=== PATIENT | female | born 1985 | race Caucasian/White ===

== ENCOUNTER 2020-11-11 10:01 | Inpatient (IN) ==
--- NOTE | 2020-11-09 15:18 | Anesthesiology Consultation ---
Date of Service November 09, 2020 Assessment & Plan (1) Encounter for pre-operative examination: Chart Review Chart Review: Acceptable Risk for Surgery and Patient NOT seen in Pre Admission Testing Consults Requested none History Surgery Operation Date: 11/11/20 12:15 Proposed Procedures p L5-S1 Decompression Fusion, Spinal Cord Monitoring - Barrett Arteaga DO Height/Weight Height: 5 ft 7 in Weight: 89.811 kg Allergies Allergy/AdvReac Type Severity Reaction Status Date / Time levofloxacin [From Levaquin] Allergy facial Verified 11/08/20 13:20 edema Sulfa (Sulfonamide Allergy Hives Verified 11/08/20 13:20 Antibiotics) morphine AdvReac severe Verified 11/08/20 13:20 muscle cramping Medications Home Medications Medication Instructions Recorded Confirmed Last Taken acetaminophen 500 mg capsule 500 mg PO Q6H PRN 11/08/20 11/08/20 Unknown ascorbic acid (vitamin C) 500 mg 500 mg PO QAM 11/08/20 11/08/20 Unknown tablet (Vitamin C) bupropion HCl 150 mg 24 hr tablet, 150 mg PO QAM 11/08/20 11/08/20 Unknown extended release (Wellbutrin XL) clonazepam 1 mg tablet (Klonopin) 1 mg PO BID PRN 11/08/20 11/08/20 Unknown cyanocobalamin (vitamin B-12) 1,000 mcg IM MO 11/08/20 11/08/20 Unknown 1,000 mcg/mL injection solution diphenhydramine HCl 25 mg capsule 25 mg PO HS PRN 11/08/20 11/08/20 Unknown (Benadryl) ferrous sulfate 325 mg (65 mg 325 mg PO QAM 11/08/20 11/08/20 Unknown iron) tablet (iron) gabapentin 100 mg tablet 100 mg PO UD PRN 11/08/20 11/08/20 Unknown gabapentin 300 mg tablet 300 mg PO TID 11/08/20 11/08/20 Unknown ibuprofen 600 mg tablet 600 mg PO Q6H PRN 11/08/20 11/08/20 Unknown pantoprazole 40 mg tablet,delayed 40 mg PO QAM 11/08/20 11/08/20 Unknown release (Protonix) tizanidine 2 mg tablet 2 mg PO BID PRN 11/08/20 11/08/20 Unknown tramadol 50 mg tablet 50 mg PO Q6H PRN 11/08/20 11/08/20 Unknown Past Medical History Medical History Anxiety and depression DDD (degenerative disc disease) Herniated intervertebral disc History of cardiac murmur as a child History of Chiari malformation History of gastric ulcer History of GI bleed History of iron deficiency anemia Osteoarthritis Postoperative nausea Retrolisthesis of vertebrae Past Surgical History Surgical History History of x 2 History of cholecystectomy History of colonoscopy History of esophagogastroduodenoscopy (EGD) History of loop electrical excision procedure (LEEP) History of surgery chiari malformation decompression History of tonsillectomy and adenoidectomy History of wisdom tooth extraction Social History Smoking Status: Current every day smoker tobacco type: cigarettes Smoking cigarettes per day: 10 Do You Dip or Chew Tobacco: No Hx Alcohol Use: Yes alcohol intake frequency: a few times a month Hx Substance Use: No substance use type: does not use Testing Laboratory Results Laboratory Tests 11/03/20 11/03/20 11/03/20 12:38 12:38 12:38 WBC 10.10 Hgb 13.5 Hct 39.4 Plt Count 230 PT 9.3 INR 0.9 APTT 29.4 Sodium 141 Potassium 3.7 Chloride 110 H Carbon Dioxide 23 BUN 7 Creatinine 0.83 Glucose 91 Electrocardiogram Date: 11/03/20 DICTATED BY: Oscar Peña MD Test Reason : Blood Pressure : / mmHG Vent. Rate : 082 BPM Atrial Rate : 082 BPM P-R Int : 110 ms QRS Dur : 094 ms QT Int : 374 ms P-R-T Axes : 075 088 050 degrees QTc Int : 436 ms Sinus rhythm with sinus arrhythmia Otherwise normal ECG No previous ECGs available Confirmed by Oscar Peña ([id number]) on 11/04/2020 3:13:06 PM Chest X-Ray Date: 11/03/20 XR chest 2V PA/lateral HISTORY: 35 years-old Female Z01.818 COMPARISON: None TECHNIQUE: PA and lateral views of the chest FINDINGS: Cardiomediastinal and hilar silhouettes are within normal limits. No pneumotho rax, pleural effusion, airspace consolidation or overt pulmonary edema. Bones appear grossly intact. Cholecystectomy. IMPRESSION: No acute process.
--- NOTE | 2020-11-09 16:03 | History & Physical Report ---
Date of Service November 09, 2020 Assessment & Plan (1) Lumbar disc herniation with radiculopathy: Plan: Assessment lumbar disc condition with radiculopathy. Plan at this time we are planning for a L5-S1 decompression fusion. She does exhibit progressive neuro deficit involving left lower extremity. The pain is unremitting. History of Present Illness Chief Complaint: Back and left leg pain and weakness Primary Care Provider: Lindsey Lloyd This is a 35-year-old female who presents with after undergoing a fall at work with back pain and left sciatica. She undergone extensive course of nonoperative care but continues to note decline. She has marked inability to ambulate secondary to pain. She notes motor deficits involving the left lower extremity. Allergies Allergy/AdvReac Type Severity Reaction Status Date / Time levofloxacin [From Levaquin] Allergy facial Verified 11/08/20 13:20 edema Sulfa (Sulfonamide Allergy Hives Verified 11/08/20 13:20 Antibiotics) morphine AdvReac severe Verified 11/08/20 13:20 muscle cramping Home Medications Medication Instructions Recorded Confirmed Type acetaminophen 500 mg capsule 500 mg PO Q6H PRN 11/08/20 11/08/20 History ascorbic acid (vitamin C) 500 mg 500 mg PO QAM 11/08/20 11/08/20 History tablet (Vitamin C) bupropion HCl 150 mg 24 hr tablet, 150 mg PO QAM 11/08/20 11/08/20 History extended release (Wellbutrin XL) clonazepam 1 mg tablet (Klonopin) 1 mg PO BID PRN 11/08/20 11/08/20 History cyanocobalamin (vitamin B-12) 1,000 mcg IM MO 11/08/20 11/08/20 History 1,000 mcg/mL injection solution diphenhydramine HCl 25 mg capsule 25 mg PO HS PRN 11/08/20 11/08/20 History (Benadryl) ferrous sulfate 325 mg (65 mg 325 mg PO QAM 11/08/20 11/08/20 History iron) tablet (iron) gabapentin 100 mg tablet 100 mg PO UD PRN 11/08/20 11/08/20 History gabapentin 300 mg tablet 300 mg PO TID 11/08/20 11/08/20 History ibuprofen 600 mg tablet 600 mg PO Q6H PRN 11/08/20 11/08/20 History pantoprazole 40 mg tablet,delayed 40 mg PO QAM 11/08/20 11/08/20 History release (Protonix) tizanidine 2 mg tablet 2 mg PO BID PRN 11/08/20 11/08/20 History tramadol 50 mg tablet 50 mg PO Q6H PRN 11/08/20 11/08/20 History Past Med/Surg History Medical History Anxiety and depression DDD (degenerative disc disease) Herniated intervertebral disc History of cardiac murmur as a child History of Chiari malformation History of gastric ulcer History of GI bleed History of iron deficiency anemia Osteoarthritis Postoperative nausea Retrolisthesis of vertebrae Surgical History History of x 2 History of cholecystectomy History of colonoscopy History of esophagogastroduodenoscopy (EGD) History of loop electrical excision procedure (LEEP) History of surgery chiari malformation decompression History of tonsillectomy and adenoidectomy History of wisdom tooth extraction Social History Smoking Status: Current every day smoker Cigarettes Per Day: 10; Second Hand Exposure: Yes ( smokes); Hx Alcohol Use: Yes Hx Substance Use: No Preferred Language: Tongan Communication Ability: Effective Project Production Engineer Required: No Beliefs That Will Affect Care: None Current Living Situation: Spouse and Family Feels Safe at Home: Yes Assistive Devices: Brace/Splint/Immobilizer, Cane, Contacts and Glasses Physical Exam Physical Exam: Patient is alert and oriented Heart regular rhythm Lungs clear to auscultation Patient does exhibit severe tension signs with straight leg raising on the left compared to the right. She has 3+/5 left plantar flexion dorsiflexion extensor hallucis longus. She has breakaway weakness to the left quadricep. She exhibits 5 or 5 strength to detailed testing the right lower extremity. She has decreased sensation to cold and light touch to left lower extremity compared to the right.
[~2020-11-11 10:01] MED LIST: ACETAMINOPHEN 500 MG TAB PO SCH; CeleBREX 200 MG CAP PO SCH; GABAPENTIN 900 MG DOSE PO SCH; LR 15ML/HR IV SCH; ceFAZolin 2000MG 2,000 MG/15 ML SYR IV SCH
[2020-11-11 11:11] LABS: Pregnancy Test, Serum Negative (Negative)
[2020-11-11] MEDS ORDERED: GLYCOPYRROLATE 0.2 MG/ML VIAL ONE (11:20)
[2020-11-11] MEDS ORDERED: HYDROmorphone INJ 1 MG/ML SYRINGE IV PRN (11:20)
[2020-11-11] MEDS ORDERED: NEOSTIGMINE METHYLSULFATE 1 MG/ML 10ML VIAL ONE (11:20)
[2020-11-11] MEDS ORDERED: ePHEDrine sulfate 50 MG/ML AMP IV PRN (11:20)
[2020-11-11] MEDS ORDERED: DEXAMETHASONE SOD INJ 4 MG/ML VIAL ONE (11:20)
[2020-11-11] MEDS ORDERED: PROPOFOL IV EMULSION 10 MG/ML 20 ML VIAL IV ONE (11:20)
[2020-11-11] MEDS ORDERED: ONDANSETRON INJ 2 MG/ML 2 ML VIAL IV PRN (11:20)
[2020-11-11] MEDS ORDERED: MIDAZOLAM HCL 1 MG/ML 2ML VIAL ONE (11:20)
[2020-11-11] MEDS ORDERED: ATROPINE SULFATE 0.1 MG/ML 10ML SYR IV PRN (11:20)
[2020-11-11] MEDS ORDERED: PROMETHAZINE HCL 6.25 MG in SODIUM CHLORIDE 0.9% 50 ML IV PRN (11:20)
[2020-11-11] MEDS ORDERED: LIDOCAINE 2% 2 ML VIAL/AMP(20MG/ML) INFIL ONE (11:20)
[2020-11-11] MEDS ORDERED: ONDANSETRON INJ 2 MG/ML 2 ML VIAL ONE (11:20)
[2020-11-11] MEDS ORDERED: fentaNYL citrate 100 MCG/2 ML VIAL ONE (11:20)
[2020-11-11] MEDS ORDERED: SCOPOLAMINE 1 MG TDSY TD ONE (11:21)
--- NOTE | 2020-11-11 13:16 | History & Physical Bridge Note ---
Date of Service November 11, 2020 History & Physical Bridge Note I have examined the patient, reviewed the History & Physical and in the interval since the performance of the History & Physical I have noted the following changes of clinical significance: no changes noted
[2020-11-11] MEDS ORDERED: BUPIVACAINE 0.5 % 5 MG/1 ML MPF 30ML VIAL ONE (13:42)
[2020-11-11] MEDS ORDERED: EPINEPHrine INJ 1 MG/ML AMP ONE (13:42)
[2020-11-11] MEDS ORDERED: FLOSEAL HEMOSTATIC MATRIX 10ML TOP ONE (14:00)
[2020-11-11] MEDS ORDERED: HYDROmorphone INJ 2 MG/ML SYR/VIAL ONE (14:10)
[2020-11-11] MEDS ORDERED: ALBUTEROL HFA INHALER 8.5 GM ONE (15:18)
--- NOTE | 2020-11-11 15:22 | Operative Report ---
Post Operative Report Pre & Post Diagnosis Operation Date: 11/11/20 12:15 Pre-Op Diagnosis: Lumbar disc herniation with radiculopathy Post-Op Diagnosis: Lumbar disc herniation with radiculopathy I identified the patient and participated in the time-out.: Yes Procedure Operation Date: 11/11/20 12:15 Actual Procedures #1 lumbar decompression with bilateral medial facetectomies and foraminotomies L5-S1. #2 posterior spinal fusion L5-S1 per #3 placed posterior instrumentation L5-S1 per #4 interbody fusion L5-S1. #5 placement of globus titanium interbody cage 13 mm in height at L5-S1. #6 placement locally harvested morselized autograft in the posterior gutters. #7 placement of I factor combined with v toss in the interbody space and posterior gutters. Surgeon Barrett Arteaga, DO Aerodynamicist Leandro Urena Estimated Blood Loss 50 Findings Consistent with Post-Op Diagnosis Specimens None Indications This is a 35-year-old female who presents above-mentioned diagnosis of failing since course of nonoperative care is here for surgical invention. Description of Procedure Patient was met with identified informed consent obtained. Patient was then taken to the operative suite underwent ablation placed in a prone position Everett Bradley frame. A bony promises well-padded eyes inspected to ensure no external pressure placed upon the. This point lumbar spine was prepped and draped in a sterile fashion. Sharp dissection with the assistance of Bovie cautery was performed down to and exposing the lamina and transverse processes of L5 and the sacral ala bilaterally. From caudal cephalad fashion complete laminectomy of L5 was performed including bilateral medial facetectomies and foraminotomies. Identified significant disc protrusion against the nerve roots on the left. Pedicle screws were then placed in L5 and S1 levels bilaterally with assistance of fluoroscopy and the proper sized elba placed. By way of a transforaminal approach on the right a complete discectomy was performed endplates curetted to subcortical mean bone and a 13 mm titanium cage filled with I factor tapped in position. The rods were then compressed locked in final position bilaterally. The transverse processes of L5 and sacral ala burred to subcortically bone. I factor combined with V toss and locally harvested morselized autograft was then placed in the posterior gutters. 15 round SREEDHAR drain inserted. The incision was then closed with 1 Vicryl to fascia 2-0 Vicryl subcutaneously and 4 Monocryl for final skin closure. Steri-Strip sterile dressing was placed. Patient will continue PACU stable condition. Please note spinal cord monitoring was last that the procedure no changes noted. Lastly Leandro Urena was present at the entire surgeon while the patient positioning complex portions of the surgery and final skin closure. I attest to the content of the Intraoperative Record and any orders documented therein. Any exceptions are noted below.
--- NOTE | 2020-11-11 15:42 | Fluoroscopy Report ---
FL lumbar spine 2-3V CLINICAL HISTORY: L5-S1 DECOMPRESSION AND FUSION COMPARISON STUDY: None. FLUOROSCOPY TIME: 25 seconds. FLUOROSCOPIC IMAGES: 2 FINDINGS: Fluoroscopy was provided during L5-S1 discectomy with interbody spacer placement. Posterior decompression is noted. There are bilateral pedicle screws at the L5 and S1 levels with interconnect ing rods. Hardware is intact. IMPRESSION: Fluoroscopy provided during L5-S1 discectomy, posterior decompression and bilateral pedi richard screw fusion. ACT 112: Negative or not required by law. Electronically signed by: Brayden Peters M.D. 11/11/2020 3:41 PM
[2020-11-11] MEDS: fentaNYL citrate 100 MCG/2 ML VIAL IV PRN ×3 (15:58→16:08)
[2020-11-11] MEDS ORDERED: ACETAMINOPHEN 1,000 MG/100 ML VIAL IV STA (16:24)
[2020-11-11] MEDS ORDERED: ACETAMINOPHEN 1000 MG/100 ML IV IV ONE (16:25)
--- NOTE | 2020-11-11 16:36 | Anesthesiology Progress Note ---
Date of Service November 11, 2020 Anesthesia Post Procedure Vital Signs Vital Signs: Temp Pulse Pulse Resp BP BP Pulse Ox 11/11/20 16:30 36.5 C 86 15 127/76 93 11/11/20 16:20 87 24 132/70 93 11/11/20 16:10 95 H 19 121/69 93 11/11/20 16:00 99 H 24 132/78 98 11/11/20 15:53 36.3 C L 124 H 17 140/94 97 11/11/20 10:24 36.8 C 88 18 122/80 98 Pain Intensity Left Leg: Pain Intensity: 6 Back: Pain Intensity: 6 Transfer of Care Handoff Completed per policy Notes Mental Status: alert / awake / arousable Patient Amnestic to Procedure: Yes Nausea / Vomiting: adequately controlled Pain: adequately controlled Airway Patency, RR, SpO2: stable & adequate BP & HR: stable & adequate Hydration State: stable & adequate Anesthetic Complications: no major complications apparent
[2020-11-11] MEDS ORDERED: GABAPENTIN 100 MG PO PRN (17:30)
[2020-11-11] MEDS ORDERED: LORazepam 0.5 MG TAB PO PRN (17:30)
[2020-11-11] MEDS ORDERED: clonazePAM 1 MG TAB PO PRN (17:30)
[2020-11-11] MEDS ORDERED: DO NOT ADMINISTER PNEUMOCOCCAL VACCINE PRN (17:30)
[2020-11-11] MEDS ORDERED: NON-FORMULARY MEDICATION (Acetaminophen 500 mg Capsule) PO PRN (17:30)
[2020-11-11] MEDS ORDERED: LACTATED RINGER'S 1,000 ML IV SCH (17:30)
[2020-11-11] MEDS ORDERED: DO NOT ADMINISTER FLU VACCINE PRN (17:30)
[2020-11-11] MEDS ORDERED: PROMETHAZINE HCL 12.5 MG in SODIUM CHLORIDE 0.9% 50 ML IV PRN (17:30)
[2020-11-11] MEDS ORDERED: MAGNESIUM HYDROXIDE SUSP 30 ML UDC PO PRN (17:30)
[2020-11-11] MEDS ORDERED: SOD PHOSPHATE/SOD BIPHOSPHATE ENEMA 132 ML BTL PR PRN (17:30)
[2020-11-11] MEDS ORDERED: bisacodyL 10 MG SUPP PR PRN (17:30)
[2020-11-11] MEDS ORDERED: NALOXONE HCL 0.4 MG/1 ML VIAL/CARP IV PRN (17:30)
[2020-11-11] MEDS ORDERED: hydrOXYzine HCl 25 MG TAB PO PRN (17:30)
[2020-11-11] MEDS ORDERED: ACETAMINOPHEN 1,000 MG/100 ML VIAL IV PRN (17:30)
[2020-11-11] MEDS ORDERED: traMADol HCL 50 MG TABLET PO PRN (17:30)
[2020-11-11] MEDS ORDERED: FAMOTIDINE 20 MG TAB PO PRN (17:30)
[2020-11-11] MEDS ORDERED: tiZANidine HCL 4 MG TABLET PO PRN (17:30)
[2020-11-11] MEDS ORDERED: LORazepam 0.5 MG/1 ML VIAL IV PRN (17:30)
[2020-11-11] MEDS ORDERED: METOCLOPRAMIDE HCL INJ 5 MG/ML 2 ML VIAL IV PRN (17:30)
[2020-11-11] MEDS ORDERED: diphenhydrAMINE Capsule 25 MG CAP PO PRN ×2 (17:30)
[2020-11-11] MEDS ORDERED: ALUMINUM/MAGNESIUM SUSP 30 ML UDC PO PRN (17:30)
[2020-11-11] MEDS: HYDROmorphone INJ 1 MG/ML SYRINGE IV PRN ×2 (17:54→20:56)
[2020-11-11] MEDS: KETOROLAC 30 MG/ML VIAL IV SCH ×2 (17:58→22:51)
[2020-11-11] MEDS: ceFAZolin 2000MG 2,000 MG/15 ML SYR IV SCH (20:13)
[2020-11-11] MEDS: ONDANSETRON INJ 2 MG/ML 2 ML VIAL IV PRN (20:13)
[2020-11-11] MEDS: GABAPENTIN 300 MG CAP PO SCH (20:13)
[2020-11-11] MEDS: DOCUSATE SODIUM/SENNA 50/8.6MG TAB PO SCH (20:13)
[2020-11-12] MEDS: HYDROmorphone INJ 1 MG/ML SYRINGE IV PRN ×4 (02:04→22:23)
[2020-11-12] MEDS: ONDANSETRON INJ 2 MG/ML 2 ML VIAL IV PRN (03:42)
[2020-11-12] MEDS: ACETAMINOPHEN 500 MG TAB PO PRN ×2 (05:29→17:36)
[2020-11-12] MEDS: oxyCODONE HCL IR 5 MG TAB (IMMEDIATE RELEASE) PO PRN ×4 (05:29→20:47)
[2020-11-12] MEDS: POLYETHYLENE (MIRALAX) 17 GM PACK PO SCH ×4 (05:30→21:53)
[2020-11-12] MEDS: KETOROLAC 30 MG/ML VIAL IV SCH ×2 (05:30→12:43)
[2020-11-12] MEDS: ceFAZolin 2000MG 2,000 MG/15 ML SYR IV SCH (05:30)
[2020-11-12 05:59] LABS: Basophils # (auto) 0.02 K/uL (0-0.2); Basophils % (auto) 0.2 %; Eosinophils # (auto) 0.01 K/uL (0-0.5); Eosinophils % (auto) 0.1 %; Hematocrit (blood only) 34.4 % (37-47); Hemoglobin 11.4 g/dL (12.0-16.0); Immature Granulocytes # (auto) 0.02 K/uL (0.00-0.02); Immature Granulocytes % (auto) 0.2 %; Lymphocytes # (auto) 1.15 K/uL (1.2-3.4); Lymphocytes % (auto) 8.6 %; Mean Corpuscular Hemoglobin 29.8 pg (25-34); Mean Corpuscular Hgb Conc 33.1 g/dL (32-36); Mean Corpuscular Volume 89.8 fL (80-100); Mean Platelet Volume 10.6 fL (7.4-10.4); Monocytes # (auto) 0.81 K/uL (0.11-0.59); Monocytes % (auto) 6.1 %; Neutrophils # (auto) 11.31 K/uL (1.4-6.5); Neutrophils % (auto) 84.8 %; Platelet Count 227 K/uL (130-400); RDW Coefficient of Variation 12.4 % (11.5-14.5); RDW Standard Deviation 40.6 fL (36.4-46.3); Red Blood Count 3.83 M/uL (4.2-5.4); White Blood Count 13.32 K/uL (4.8-10.8)
[2020-11-12 06:37] LABS: BUN Creatinine Ratio 7.7 (10-20); Calcium 8.6 mg/dl (8.5-10.1); Creatinine Clr Calc Pharmacy 93.6 ml/min; Est GFR (African American) 87.2 ml/min; Est GFR (Non-African American) 75.3 ml/min
[2020-11-12] MEDS: HYDROmorphone INJ 0.5 MG/0.5 ML SYR IV PRN ×2 (08:42→17:36)
[2020-11-12] MEDS: PANTOprazole 40 MG TAB PO SCH (08:43)
[2020-11-12] MEDS: FERROUS SULFATE 325 MG TAB PO SCH (08:43)
[2020-11-12] MEDS: buPROPion XL 150 MG TABCR PO SCH (08:43)
[2020-11-12] MEDS: GABAPENTIN 300 MG CAP PO SCH ×3 (08:43→19:01)
[2020-11-12] MEDS: ASCORBIC ACID 500 MG TAB PO SCH (08:43)
--- NOTE | 2020-11-12 10:01 | Orthopedic Progress Note ---
Date of Service November 12, 2020 Assessment & Plan (1) Lumbar disc herniation with radiculopathy: Plan: This time initiate physical therapy monitor SREEDHAR operatively discharge home next few days. Admission and Anticipated Discharge Date Admission Date: November 11, 2020 Subjective Back pain controlled leg symptoms markedly improved Physical Exam Physical Exam: Patient has good strength testing is comfortable. Results & Data ([facility]) Vital Signs (Past 12 Hours) Vital Signs Temp Pulse Resp BP Pulse Ox 11/12/20 07:55 37.3 C 70 18 125/79 95 11/12/20 02:05 36.6 C 81 16 119/64 93 11/11/20 22:45 37.2 C 70 16 110/67 97
[2020-11-12] MEDS: ONDANSETRON 4 MG OD TAB PO PRN ×2 (12:45→22:23)
[2020-11-12] MEDS: DOCUSATE SODIUM/SENNA 50/8.6MG TAB PO SCH (19:01)
[2020-11-13] MEDS: ACETAMINOPHEN 500 MG TAB PO PRN (02:13)
[2020-11-13] MEDS: oxyCODONE HCL IR 5 MG TAB (IMMEDIATE RELEASE) PO PRN ×2 (02:13→08:34)
[2020-11-13] MEDS: POLYETHYLENE (MIRALAX) 17 GM PACK PO SCH (03:55)
[2020-11-13] MEDS: HYDROmorphone INJ 0.5 MG/0.5 ML SYR IV PRN (05:16)
--- NOTE | 2020-11-13 08:13 | Discharge Summary ---
Date of Service November 13, 2020 Admission HPI Per Admitting Provider This is a 35-year-old female who presents with after undergoing a fall at work with back pain and left sciatica. She undergone extensive course of nonoperative care but continues to note decline. She has marked inability to ambulate secondary to pain. She notes motor deficits involving the left lower extremity. Admission Exam (Per Admitting) Constitutional WD/WN, vitals as above Eyes normal visual fuentes by confrontation Neck normal visual inspection Respiratory normal respiratory effort Cardiovascular Extremities: normal capillary refill Gastrointestinal (Abdomen) Inspection/Auscultation: abdomen normal to inspection Musculoskeletal left foot drop numbness LLE Skin no rashes, warm and dry Neurologic normal touch/pain/proprioception and moves all extremities Psychiatric A+Ox3, euthymic affect Discharge Data Procedures Performed Operation Date: 11/11/20 12:15 Actual Procedures p L5-S1 Decompression Fusion, interbody cage implanted, with use of allograft, Spinal Cord Monitoring - Barrett Arteaga DO Hospital Course (1) Lumbar disc herniation with radiculopathy: Patient has had an uncomplicated postoperative course status post TLIF of L5-S1. She has been discharged home on postoperative day 2. Pain is controlled. She is passing flatus but no bowel movement. She is becoming quite anxious in the hospital and a bit homesick and is requesting to return home today. SREEDHAR drain output last shift was 30 cc. Physical therapy yesterday was 375 feet plus ambulating in the hallways. Discharge Instructions ACTIVITY RECOMMENDATIONS: SELF CARE INSTRUCTIONS AFTER THORACIC/LUMBAR FUSIONS 1. You may walk to your tolerance. It is good exercise for your legs and back. Expect some back and intermittent leg aches and pains. 2. You may perform "counter-top" level activities (make a sandwich, margoth with a project, etc.). 3. No bending or lifting of more than 10 pounds or back twisting of any nature (roll like a log when turning in bed). 4. You may ride in a car for 20-30 minutes at a time. No driving until after your first visit with your doctor. 5. Frequent changes of position and restricting sitting to 30 minutes at a time will help limit the amount of back spasms and stiffness you may experience. 6. You may discontinue the use of ambulatory aids (cane, crutches, etc.) once your strength and confidence allow. 7. You may machine milker the shower and let water strike your incision when you arrive home at least once daily. Do not take a tub bath, sit in a hot tub or go into a swimming pool until after your first recheck in the office. SPECIAL CARE INSTRUCTIONS: VERY IMPORTANT TO READ AND REVIEW A. Your surgical incision has been closed with a cosmetic suture under the skin that will dissolve in about 6 weeks. In 14 days, you can use a pair of clean scissors and cut the suture that is left outside of the skin at the ends of your incision. 1. The small skin tapes can be removed 7 days after surgery if they have not fallen off by that point. 2. You may keep the wound open to air as much as possible to promote healing after post-op day number 5 unless told otherwise by your doctor. 3. If you think the wound looks like it is becoming infected (redness or worsening drainage) and/or you are experiencing fever, chill or worsening back pain and muscle spasms, contact the office so that we may evaluate you as soon as possible. B. Complications are uncommon, but please contact us if you have any signs or symptoms of: 1. wound infection (fever higher than 102.5 degrees F, redness, separation of wound, drainage, or increasing pain from the incision) 2. blood clots in legs (pain, swelling, redness and warmth in legs) 3. urinary tract infection (fever higher than 102.5 degrees F, burning upon urination or increased frequency of urination) 4. nerve problems (inability to walk on your toes or heels, numbness, loss of bowel or bladder control) 5. any other symptoms that concern you C. Please call the office at if you have any concerns or questions about your operation or recovery. D. No smoking! Smoking drastically decreases the chance of a solid fusion. E. Do not take any anti-inflammatory medications (Indocin, Advil, Motrin, Aspirin, Naprosyn, etc.) as these may inhibit the chance of a solid fusion. Tylenol is okay to take for pain. MANAGING PAIN AFTER SPINAL SURGERY 1. Narcotic medication is intended for short-term use and will be provided for surgical pain. Surgical pain usually lasts for a period of 4-6 weeks. Narcotic medication includes Percocet, Vicodin, Darvocet, Tylenol #3 or Lortab. 2. Longer-term pain is more appropriately treated with non-narcotic medication such as Tylenol ES. 3. Muscle spasm is not appropriately treated with narcotics. Muscle relaxers such as Soma, Flexeril or Skelaxin can be used along with Tylenol ES. 4. Remember that we all live with some "aches and pains". This is not unusual or uncommon after an injury or as we get older. a. Back pain is expected and may include muscle spasms for 4 to 6 weeks after surgery. The pain should gradually improve. If the pain worsens for no apparent reason, please contact the office. b. Intermittent leg pain may also be experienced and should not be concerned about unless it worsens for no apparent reason. If so, please contact the office. 5. We will provide appropriate medication within the normal guidelines of their prescribed use. We will also be very cautious and aware of potential abuse and extended duration of patients' medication needs. a. Pain medications are for your comfort and to assist with sleep and rest so that the tissue can heal. They are not provided in order to return to normal activity and should not be used through the day. To do so or worsening pain at night can result from ongoing tissue damage and development of tolerance to the prescribed medicine. 6. Please allow 2-3 days to process refills. Prescriptions will not be mailed but must be picked up at the office. FOLLOW UP VISIT: Keep your scheduled follow-up appointment. Any questions, please call the office at .
[2020-11-13] MEDS: ASCORBIC ACID 500 MG TAB PO SCH (08:35)
[2020-11-13] MEDS: GABAPENTIN 300 MG CAP PO SCH (08:35)
[2020-11-13] MEDS: PANTOprazole 40 MG TAB PO SCH (08:35)
[2020-11-13] MEDS: buPROPion XL 150 MG TABCR PO SCH (08:35)
[2020-11-13] MEDS: FERROUS SULFATE 325 MG TAB PO SCH (08:35)
[2020-11-13] MEDS ORDERED: dexAMETHasone 8 MG in SYRINGE 0 ML IV SCH (09:00)
[2020-11-14] MEDS ORDERED: CYANOCOBALAMIN 1000 MCG/ML VIAL IM SCH (15:23)
--- NOTE | 2020-11-18 14:35 | Coding Query ---
CODING QUERY To promote full compliance with coding requirements relating to patient care, provider participation is requested in all cases of glove examiner uncertainty. Please assist us with the question(s) below: Coding Question(s): Lumbar disc herniation with radiculopathy is documented and there is documentation of , "This is a 35-year-old female who presents with after undergoing a fall at work with back pain and left sciatica. She undergone extensive course of nonoperative care but continues to note decline. She has marked inability to ambulate secondary to pain. She notes motor deficits involving the left lower extremity.". Please specify below, in your clinical opinion, regarding the Lumbar disc herniation with radiculopathy. (x ) Lumbar disc herniation with radiculopathy - due to Trauma from the Fall at work ( ) Lumbar disc herniation with radiculopathy - Not due to Trauma ( ) Other: Please Specify Physician's Response(s): Thank you Perla Tan Principal Diagnosis: "that condition established after study, to be chiefly responsible for occasioning the admission of the patient to the hospital for care." Co-Existing Principal Diagnosis: "when two or more diagnoses equally meet the criteria for principal diagnosis as determined by the circumstances of admission, diagnostic work up, and/or therapy provided, and the Alphabetic Index, Tabular List, or another coding guideline does not provide sequencing direction, any one of the diagnoses may be sequenced first." "When the physician has documented what appears to be a current diagnosis in the body of the record, but has not included the diagnosis in the final diagnostic statement, the physician should be asked whether the diagnosis should be added." ([facility] 2 QTR90. p3-4) CHERYL
== END 2020-11-13 09:31 | disposition home or self-care (01) | DRG 455 ==
LOC: ASU 10:01 → 3E 15:26

== ENCOUNTER 2021-04-19 10:57 | Inpatient (IN) ==
--- NOTE | 2021-04-19 11:28 | Emergency Department Note ---
History of Present Illness General Chief complaint: Leg Injury/Pain Stated complaint: LT LEG PAIN, HERNIATED DISC Time Seen by Provider: 04/19/21 11:21 History of Present Illness Maximum Pain Intensity: 10 This is a 35-year-old female that presents to the emergency department via private vehicle with complaints of "left leg pain, herniated disc". Patient notes a history of L5-S1 fusion in October 2020. She has been doing well since that time but notes that she had therapy this past and straight leg raise caused a shooting discomfort. She had a vasovagal episode at that time secondary to pain. She also had nausea, vomiting and spasm. She notes pain radiating down her left leg from her low back region. She was recently admitted to [facility] for the past few days for intractable back pain. She had an MRI and CT scan of the L-spine she notes. She followed up with her spine team today. She notes that she was sent here for admission with likely operative intervention noting her persistent and ongoing discomfort as well as abnormal imaging recently. Current discomfort 12/04. No fevers or chills. No cauda equina symptoms at the present time. Home Medications Medication Instructions Recorded Confirmed Type acetaminophen 500 mg capsule 500 mg PO Q6H PRN 11/08/20 11/11/20 History ascorbic acid (vitamin C) 500 mg 500 mg PO QAM 11/08/20 11/11/20 History tablet (Vitamin C) bupropion HCl 150 mg 24 hr tablet, 150 mg PO QAM 11/08/20 11/11/20 History extended release (Wellbutrin XL) clonazepam 1 mg tablet (Klonopin) 1 mg PO BID PRN 11/08/20 11/11/20 History cyanocobalamin (vitamin B-12) 1,000 mcg IM MO 11/08/20 11/11/20 History 1,000 mcg/mL injection solution diphenhydramine HCl 25 mg capsule 25 mg PO HS PRN 11/08/20 11/11/20 History (Benadryl) ferrous sulfate 325 mg (65 mg 325 mg PO QAM 11/08/20 11/11/20 History iron) tablet (iron) gabapentin 100 mg tablet 100 mg PO UD PRN 11/08/20 11/11/20 History gabapentin 300 mg tablet 300 mg PO TID 11/08/20 11/11/20 History ibuprofen 600 mg tablet 600 mg PO Q6H PRN 11/08/20 11/11/20 History pantoprazole 40 mg tablet,delayed 40 mg PO QAM 11/08/20 11/11/20 History release (Protonix) tizanidine 2 mg tablet 2 mg PO BID PRN 11/08/20 11/11/20 History tramadol 50 mg tablet 50 mg PO Q6H PRN 11/08/20 11/11/20 History oxycodone 5 mg tablet 5 mg PO Q6H PRN #30 tab 11/12/20 Rx tramadol 50 mg tablet 50 mg PO Q6H PRN #30 tab 11/12/20 Rx Allergies Allergy/AdvReac Type Severity Reaction Status Date / Time levofloxacin [From Levaquin] Allergy facial Verified 11/11/20 10:34 edema Sulfa (Sulfonamide Allergy Hives Verified 11/11/20 10:34 Antibiotics) morphine AdvReac severe Verified 11/11/20 10:34 muscle cramping Past Med/Surg History Medical History Anxiety and depression DDD (degenerative disc disease) Herniated intervertebral disc History of cardiac murmur as a child History of Chiari malformation History of gastric ulcer History of GI bleed History of iron deficiency anemia Osteoarthritis Postoperative nausea Retrolisthesis of vertebrae Surgical History History of x 2 History of cholecystectomy History of colonoscopy History of esophagogastroduodenoscopy (EGD) History of loop electrical excision procedure (LEEP) History of surgery chiari malformation decompression History of tonsillectomy and adenoidectomy History of wisdom tooth extraction Social History Smoking Status: Current every day smoker Cigarettes Per Day: 10; Second Hand Exposure: Yes ( smokes); Hx Alcohol Use: Yes Hx Substance Use: No Preferred Language: Citizen Of [place] Communication Ability: Effective Sales Service Coordinator Required: No Beliefs That Will Affect Care: None Current Living Situation: Spouse and Family Feels Safe at Home: Yes Assistive Devices: Walker Review of Systems A total of 10 systems reviewed and were otherwise negative Physical Exam Vital Signs Vital Signs - 24 hr 04/19/21 11:12 Temperature 36.6 C Temperature Source Temporal Artery Scan Pulse Rate 104 H Respiratory Rate 18 Respiratory Effort / Characteristics Non-Labored Respiratory Depth Normal Blood Pressure 142/94 H Blood Pressure Mean 110 Pulse Oximetry 98 Oxygen Delivery Method Room Air Sepsis Recent Fever Within 48 Hours No Sepsis New/Unexplained Change in Mental Status No Sepsis Action Taken by Nursing No Action Required VITAL SIGNS - Vital signs and nursing notes were reviewed. Stable and afebrile. GENERAL -35-year-old female appearing her stated age who is in no acute distress. Communicates well with provider and answers questions appropriately. SKIN - Without rashes. No meningeal or petechial rash. HEAD - NC/AT. EYES - Sclera anicteric. NECK - No nuchal rigidity. LUNGS - Chest wall symmetric without accessory muscle use, intercostals retractions, or central cyanosis. Normal vesicular breath sounds CTA B/L. No wheezes, rales, or rhonchi appreciated. CARDIAC - RRR with S1/S2. No murmur, rubs, or gallops appreciated. EXTREMITIES - No clubbing or peripheral cyanosis.+5/5 strength noted in UE/LE bilaterally. NEUROLOGIC - Cranial nerves II through XII grossly intact. PSYCH - A&Ox3 and cooperates fully with examiner. Pt is very pleasant and interacts well with examiner. Course Administered Medications Hydromorphone HCl (Hydromorphone Inj 0.5 Mg/0.5 Ml Syr) 0.5 mg IV Q60M PRN PRN Reason: Pain Stop: 05/03/21 11:52 Last Admin: 04/19/21 11:58 Dose: 0.5 mg Documented by: [id number] Discontinued Medications Ondansetron HCl (Ondansetron Inj 2 Mg/Ml 2 Ml Vial) 4 mg IV NOW STA Stop: 04/19/21 11:54 Last Admin: 04/19/21 11:58 Dose: 4 mg Documented by: [id number] Medical Decision Making Laboratory Data Result diagrams: 04/19/21 11:50 04/19/21 11:50 Lab Results 04/19/21 04/19/21 04/19/21 Range/Units 11:45 11:45 11:50 WBC 9.63 (4.8-10.8) K/uL RBC 4.60 (4.2-5.4) M/uL Hgb 13.8 (12.0-16.0) g/dL Hct 41.6 (37-47) % MCV 90.4 (80-100) fL MCH 30.0 (25-34) pg MCHC 33.2 (32-36) g/dL RDW Std Deviation 43.5 (36.4-46.3) fL RDW Coeff of [place] 13.2 (11.5-14.5) % Plt Count 290 (130-400) K/uL MPV 11.0 H (7.4-10.4) fL Immature Gran % (Auto) 0.2 % Neut % (Auto) 72.0 % Lymph % (Auto) 22.3 % [place] % (Auto) 4.6 % Eos % (Auto) 0.7 % Baso % (Auto) 0.2 % Neut # (Auto) 6.93 H (1.4-6.5) K/uL Lymph # (Auto) 2.15 (1.2-3.4) K/uL [place] # (Auto) 0.44 (0.11-0.59) K/uL Eos # (Auto) 0.07 (0-0.5) K/uL Baso # (Auto) 0.02 (0-0.2) K/uL Immature Gran # (Auto) 0.02 (0.00-0.02) K/uL Sodium (136-145) mmol/L Potassium (3.5-5.1) mmol/L Chloride (98-107) mmol/L Carbon Dioxide (21-32) mmol/L Anion Gap (3-11) BUN (6-23) mg/dl Creatinine (0.6-1.2) mg/dl Est Cr Clr Drug Dosing ml/min Est GFR ( Amer) ml/min Est GFR (Non-Af Amer) ml/min BUN/Creatinine Ratio (10-20) Glucose (70-99(Fasting)) mg/dl Calcium (8.5-10.1) mg/dl Total Bilirubin (0.2-1.0) mg/dl AST (13-39) U/L ALT (7-52) U/L Alkaline Phosphatase (34-104) U/L Total Protein (6.0-8.3) gm/dl Albumin (3.4-5.0) gm/dl Globulin (2.5-4.0) gm/dl Albumin/Globulin Ratio (0.9-2) Urine Color Yellow Urine Appearance Clear (Clear) Urine pH 6.5 (4.5-7.5) Ur Specific [place] 1.005 (1.000-1.030) Urine Protein Negative (Negative) Urine Glucose (UA) Negative (Negative) Urine Ketones Negative (Negative) Urine Blood Negative (Negative) Urine Nitrite Negative (Negative) Urine Bilirubin Negative (Negative) Urine Urobilinogen Negative (Negative) Ur Leukocyte Esterase Negative (Negative) SARS-CoV-2, RNA, NAAT NEGATIVE (NEGATIVE) 04/19/21 Range/Units 11:50 WBC (4.8-10.8) K/uL RBC (4.2-5.4) M/uL Hgb (12.0-16.0) g/dL Hct (37-47) % MCV (80-100) fL MCH (25-34) pg MCHC (32-36) g/dL RDW Std Deviation (36.4-46.3) fL RDW Coeff of [place] (11.5-14.5) % Plt Count (130-400) K/uL MPV (7.4-10.4) fL Immature Gran % (Auto) % Neut % (Auto) % Lymph % (Auto) % [place] % (Auto) % Eos % (Auto) % Baso % (Auto) % Neut # (Auto) (1.4-6.5) K/uL Lymph # (Auto) (1.2-3.4) K/uL [place] # (Auto) (0.11-0.59) K/uL Eos # (Auto) (0-0.5) K/uL Baso # (Auto) (0-0.2) K/uL Immature Gran # (Auto) (0.00-0.02) K/uL Sodium 138 (136-145) mmol/L Potassium 4.1 (3.5-5.1) mmol/L Chloride 104 (98-107) mmol/L Carbon Dioxide 27 (21-32) mmol/L Anion Gap 7 (3-11) BUN 11 (6-23) mg/dl Creatinine 0.77 (0.6-1.2) mg/dl Est Cr Clr Drug Dosing 120.7 ml/min Est GFR ( Amer) 116.8 ml/min Est GFR (Non-Af Amer) 100.7 ml/min BUN/Creatinine Ratio 14.3 (10-20) Glucose 83 (70-99(Fasting)) mg/dl Calcium 9.6 (8.5-10.1) mg/dl Total Bilirubin 0.3 (0.2-1.0) mg/dl AST 16 (13-39) U/L ALT 21 (7-52) U/L Alkaline Phosphatase 85 (34-104) U/L Total Protein 7.2 (6.0-8.3) gm/dl Albumin 4.7 (3.4-5.0) gm/dl Globulin 2.5 (2.5-4.0) gm/dl Albumin/Globulin Ratio 1.9 (0.9-2) Urine Color Urine Appearance (Clear) Urine pH (4.5-7.5) Ur Specific [place] (1.000-1.030) Urine Protein (Negative) Urine Glucose (UA) (Negative) Urine Ketones (Negative) Urine Blood (Negative) Urine Nitrite (Negative) Urine Bilirubin (Negative) Urine Urobilinogen (Negative) Ur Leukocyte Esterase (Negative) SARS-CoV-2, RNA, NAAT (NEGATIVE) MDM Narrative Patient was seen and evaluated as above in room B09. Review was performed of nursing notes and vital signs. I did review pertinent previous visits and patient history. After obtaining a thorough history and physical examination the above work up was performed. Patient presents to us today with ongoing severe low back pain that radiates down her left leg. Patient appears to be in a great deal of pain on my examination. She was sent by her spine team office for further evaluation and management with likely operative intervention. Options of care were discussed with the patient. I discussed her presentation with the orthopedic spine surgeon, Dr. Arteaga. He came to evaluate the patient. He will admit the patient for surgical intervention. Please refer to further documentation regarding her stay. She was ordered IV analgesics and antiemetics here in the emergency department with great relief of her discomfort. No leukocytosis or concerning anemia. No emergent metabolic disturbance. Urinalysis does not suggest infection. Covid testing is negative. Patient happy with plan of care. GCS: 15 In the evaluation and treatment of this patient the following differential diagnosis entertained: Fracture, dislocation, subluxation, cauda equina s yndrome, AAA, diverticulitis, appendicitis, torsion, osteomyelitis, piriformis syndrome, strain, sprain, among others. Impression & Plan Lumbar disc herniation with radiculopathy Discharge Plan Visit Data Chief Complaint: Leg Injury/Pain Stated Complaint: LT LEG PAIN, HERNIATED DISC ED Provider: Davon Murphy ED Midlevel Provider: Baron Green Discharge Problem: Lumbar disc herniation with radiculopathy Patient Disposition: Admitted As Inpatient Condition: Good Forms Stand Alone Forms: [facility] Prescriptions Prescriptions: No Action tizanidine 2 mg Tablet 2 mg PO BID PRN (Reason: Muscle Spasm) RF: 0 clonazepam [Klonopin] 1 mg Tablet 1 mg PO BID PRN (Reason: Anxiety) RF: 0 tramadol 50 mg Tablet 50 mg PO Q6H PRN (Reason: Pain) RF: 0 ascorbic acid (vitamin C) [Vitamin C] 500 mg Tablet 500 mg PO QAM RF: 0 pantoprazole [Protonix] 40 mg Tablet,Delayed Release (Dr/Ec) 40 mg PO QAM RF: 0 diphenhydramine HCl [Benadryl] 25 mg Capsule 25 mg PO HS PRN (Reason: Sleep) RF: 0 cyanocobalamin (vitamin B-12) 1,000 mcg/mL Solution 1,000 mcg IM MO RF: 0 ferrous sulfate [iron] 325 mg (65 mg iron) Tablet 325 mg PO QAM RF: 0 ibuprofen 600 mg Tablet 600 mg PO Q6H PRN (Reason: Pain) RF: 0 acetaminophen 500 mg Capsule 500 mg PO Q6H PRN (Reason: Pain) RF: 0 bupropion HCl [Wellbutrin XL] 150 mg Tablet Extended Release 24 Hr 150 mg PO QAM RF: 0 gabapentin 100 mg Tablet 100 mg PO UD PRN (Reason: Pain) RF: 0 gabapentin 300 mg Tablet 300 mg PO TID RF: 0 tramadol 50 mg tablet 50 mg PO Q6H PRN (Reason: pain, moderate) Qty: 30 RF: 0 oxycodone 5 mg tablet 5 mg PO Q6H PRN (Reason: pain, severe) Qty: 30 RF: 0 Referrals Referrals: Lindsey Lloyd [Primary Care Provider] -
[2021-04-19] MEDS ORDERED: ONDANSETRON INJ 2 MG/ML 2 ML VIAL IV STA (11:53)
[2021-04-19] MEDS: HYDROmorphone INJ 0.5 MG/0.5 ML SYR IV PRN ×3 (11:58→16:46)
[2021-04-19 12:02] LABS: Basophils # (auto) 0.02 K/uL (0-0.2); Basophils % (auto) 0.2 %; Eosinophils # (auto) 0.07 K/uL (0-0.5); Eosinophils % (auto) 0.7 %; Hematocrit (blood only) 41.6 % (37-47); Hemoglobin 13.8 g/dL (12.0-16.0); Immature Granulocytes # (auto) 0.02 K/uL (0.00-0.02); Immature Granulocytes % (auto) 0.2 %; Lymphocytes # (auto) 2.15 K/uL (1.2-3.4); Lymphocytes % (auto) 22.3 %; Mean Corpuscular Hgb Conc 33.2 g/dL (32-36); Mean Corpuscular Volume 90.4 fL (80-100); Monocytes # (auto) 0.44 K/uL (0.11-0.59); Monocytes % (auto) 4.6 %; Neutrophils # (auto) 6.93 K/uL (1.4-6.5); Platelet Count 290 K/uL (130-400); RDW Coefficient of Variation 13.2 % (11.5-14.5); RDW Standard Deviation 43.5 fL (36.4-46.3); White Blood Count 9.63 K/uL (4.8-10.8)
[2021-04-19 12:20] LABS: Albumin Globulin Ratio 1.9 (0.9-2); Albumin Level 4.7 gm/dl (3.4-5.0); BUN Creatinine Ratio 14.3 (10-20); Bilirubin,Total 0.3 mg/dl (0.2-1.0); Calcium 9.6 mg/dl (8.5-10.1); Creatinine Clr Calc Pharmacy 120.7 ml/min; Est GFR (African American) 116.8 ml/min; Est GFR (Non-African American) 100.7 ml/min; Globulin 2.5 gm/dl (2.5-4.0); Potassium 4.1 mmol/L (3.5-5.1); Total Protein 7.2 gm/dl (6.0-8.3)
[2021-04-19 12:27] LABS: Appearance Urine Clear (Clear); Bilirubin Urine Negative (Negative); Blood Urine Negative (Negative); Color Urine Yellow; Glucose Urine UA Negative (Negative); Ketones Urine Negative (Negative); Leukocyte Esterase Urine Negative (Negative); Nitrite Urine Negative (Negative); Protein Urine Negative (Negative); Specific Gravity Urine 1.005 (1.000-1.030); Urobilinogen Urine Negative (Negative); pH Urine 6.5 (4.5-7.5)
[2021-04-19 13:15] LABS: Pregnancy Test, Serum Negative (Negative)
--- NOTE | 2021-04-19 14:39 | Anesthesiology Consultation ---
Date of Service April 19, 2021 Assessment & Plan (1) Encounter for pre-operative examination: Chart Review Chart Review: entry rep initiated History Surgery Operation Date: 04/20/21 09:25 Proposed Procedures p Lumbar Decompression Fusion L4-L5 - Barrett Arteaga DO Height/Weight Height: 5 ft 7 in Weight: 93.3 kg Allergies Allergy/AdvReac Type Severity Reaction Status Date / Time levofloxacin [From Levaquin] Allergy facial Verified 11/11/20 10:34 edema Sulfa (Sulfonamide Allergy Hives Verified 11/11/20 10:34 Antibiotics) morphine AdvReac severe Verified 11/11/20 10:34 muscle cramping Medications Home Medications Medication Instructions Recorded Confirmed Last Taken acetaminophen 500 mg capsule 500 mg PO Q6H PRN 11/08/20 11/11/20 11/09/20 12:00 ascorbic acid (vitamin C) 500 mg 500 mg PO QAM 11/08/20 11/11/20 11/10/20 06:00 tablet (Vitamin C) bupropion HCl 150 mg 24 hr tablet, 150 mg PO QAM 11/08/20 11/11/20 11/11/20 05:30 extended release (Wellbutrin XL) clonazepam 1 mg tablet (Klonopin) 1 mg PO BID PRN 11/08/20 11/11/20 11/11/20 05:30 cyanocobalamin (vitamin B-12) 1,000 mcg IM MO 11/08/20 11/11/20 11/04/20 1,000 mcg/mL injection solution diphenhydramine HCl 25 mg capsule 25 mg PO HS PRN 11/08/20 11/11/20 11/10/20 19:00 (Benadryl) ferrous sulfate 325 mg (65 mg 325 mg PO QAM 11/08/20 11/11/20 11/10/20 06:00 iron) tablet (iron) gabapentin 100 mg tablet 100 mg PO UD PRN 11/08/20 11/11/20 Unknown gabapentin 300 mg tablet 300 mg PO TID 11/08/20 11/11/20 11/11/20 06:00 ibuprofen 600 mg tablet 600 mg PO Q6H PRN 11/08/20 11/11/20 Unknown pantoprazole 40 mg tablet,delayed 40 mg PO QAM 11/08/20 11/11/20 11/11/20 06:00 release (Protonix) tizanidine 2 mg tablet 2 mg PO BID PRN 11/08/20 11/11/20 11/10/20 19:00 tramadol 50 mg tablet 50 mg PO Q6H PRN 11/08/20 11/11/20 11/03/20 12:00 oxycodone 5 mg tablet 5 mg PO Q6H PRN #30 tab 11/12/20 Unknown tramadol 50 mg tablet 50 mg PO Q6H PRN #30 tab 11/12/20 Unknown Active Medications Generic Name Dose Route Start Last Admin Trade Name Freq PRN Reason Stop Dose Admin Hydromorphone HCl 0.5 mg 04/19/21 11:53 04/19/21 13:56 Hydromorphone Inj 0.5 Mg/0.5 Ml Syr IV 05/03/21 11:52 0.5 mg Q60M PRN Administration Pain Past Medical History Medical History Anxiety and depression DDD (degenerative disc disease) Herniated intervertebral disc History of cardiac murmur as a child History of Chiari malformation History of gastric ulcer History of GI bleed History of iron deficiency anemia Osteoarthritis Postoperative nausea Retrolisthesis of vertebrae Past Surgical History Surgical History History of x 2 History of cholecystectomy History of colonoscopy History of esophagogastroduodenoscopy (EGD) History of loop electrical excision procedure (LEEP) History of surgery chiari malformation decompression History of tonsillectomy and adenoidectomy History of wisdom tooth extraction Social History Smoking Status: Current every day smoker tobacco type: cigarettes Smoking cigarettes per day: 10 Hx Alcohol Use: Yes alcohol intake frequency: a few times a month Hx Substance Use: No substance use type: does not use Physical Exam Vital Signs Last Vital Signs Temp 97.9 F 04/19/21 11:12 Pulse 95 H 04/19/21 13:58 Resp 20 04/19/21 13:58 BP 123/72 04/19/21 13:58 Pulse Ox 98 04/19/21 13:58 Testing Laboratory Results 04/19/21 11:50 04/19/21 11:50 Urine Color Yellow 04/19/21 11:45 Urine Appearance Clear (Clear) 04/19/21 11:45 Urine pH 6.5 (4.5-7.5) 04/19/21 11:45 Ur Specific [place] 1.005 (1.000-1.030) 04/19/21 11:45 Urine Protein Negative (Negative) 04/19/21 11:45 Urine Glucose (UA) Negative (Negative) 04/19/21 11:45 Urine Ketones Negative (Negative) 04/19/21 11:45 Urine Nitrite Negative (Negative) 04/19/21 11:45 Ur Leukocyte Esterase Negative (Negative) 04/19/21 11:45 Electrocardiogram Date: 11/03/20 Sinus rhythm with sinus arrhythmia, rate 82 bpm Otherwise normal ECG No previous ECGs available Confirmed by Oscar Peña ([id number]) on 11/04/2020 3:13:06 PM Chest X-Ray Date: 11/03/20 Findings: + NAD
--- NOTE | 2021-04-19 14:43 | History & Physical Report ---
Date of Service April 19, 2021 Assessment & Plan (1) Lumbar disc herniation with radiculopathy: Plan: MRI and CAT scan lumbar spine available for review. CAT scan does demonstrate evidence of a superior endplate fracture of L5 with some displacement of the pedicle and posterior elements into the canal. There is a large disc herniation that is migrated from L4-5 caudally occupying the medial aspect of the L5 pedicle and extending into the L5-S1 foramina. This is causing significant and compression of the L5 nerve root. Plan in light of her imaging and severe pain I am recommending a lumbar decompression fusion L4-5. We will extend the fusion across the fracture site noted at the base of the L5 pedicle on the left. This allowed us to adequately decompress the canal and stabilize the spine. risk- benefit pros cons alternatives were outlined in detail. Patient stands agrees. She made n.p.o. after midnight and plan for surgery tomorrow. History of Present Illness Chief Complaint: Severe left leg pain with weakness Primary Care Provider: Lindsey Lloyd This is a 35-year-old female known to me that states that last she was doing her exercise routine had the onset of severe left leg pain. She actually passed out was secondary to the pain was brought to the hospital in [place]. Barb sophia kept her there for several days with IV medications including steroids. She was discharged home but continued have severe left leg pain left buttock posterior thigh extending into the dorsum of her foot and great toe. It is hyperesthetic in nature. The right lower extremity asymptomatic. She is unable to ambulate secondary to pain in her leg giving out. Allergies Allergy/AdvReac Type Severity Reaction Status Date / Time levofloxacin [From Levaquin] Allergy facial Verified 11/11/20 10:34 edema Sulfa (Sulfonamide Allergy Hives Verified 11/11/20 10:34 Antibiotics) morphine AdvReac severe Verified 11/11/20 10:34 muscle cramping Home Medications Medication Instructions Recorded Confirmed Type acetaminophen 500 mg capsule 500 mg PO Q6H PRN 11/08/20 11/11/20 History ascorbic acid (vitamin C) 500 mg 500 mg PO QAM 11/08/20 11/11/20 History tablet (Vitamin C) bupropion HCl 150 mg 24 hr tablet, 150 mg PO QAM 11/08/20 11/11/20 History extended release (Wellbutrin XL) clonazepam 1 mg tablet (Klonopin) 1 mg PO BID PRN 11/08/20 11/11/20 History cyanocobalamin (vitamin B-12) 1,000 mcg IM MO 11/08/20 11/11/20 History 1,000 mcg/mL injection solution diphenhydramine HCl 25 mg capsule 25 mg PO HS PRN 11/08/20 11/11/20 History (Benadryl) ferrous sulfate 325 mg (65 mg 325 mg PO QAM 11/08/20 11/11/20 History iron) tablet (iron) gabapentin 100 mg tablet 100 mg PO UD PRN 11/08/20 11/11/20 History gabapentin 300 mg tablet 300 mg PO TID 11/08/20 11/11/20 History ibuprofen 600 mg tablet 600 mg PO Q6H PRN 11/08/20 11/11/20 History pantoprazole 40 mg tablet,delayed 40 mg PO QAM 11/08/20 11/11/20 History release (Protonix) tizanidine 2 mg tablet 2 mg PO BID PRN 11/08/20 11/11/20 History tramadol 50 mg tablet 50 mg PO Q6H PRN 11/08/20 11/11/20 History oxycodone 5 mg tablet 5 mg PO Q6H PRN #30 tab 11/12/20 Rx tramadol 50 mg tablet 50 mg PO Q6H PRN #30 tab 11/12/20 Rx Past Med/Surg History Medical History Anxiety and depression DDD (degenerative disc disease) Herniated intervertebral disc History of cardiac murmur as a child History of Chiari malformation History of gastric ulcer History of GI bleed History of iron deficiency anemia Osteoarthritis Postoperative nausea Retrolisthesis of vertebrae Surgical History History of x 2 History of cholecystectomy History of colonoscopy History of esophagogastroduodenoscopy (EGD) History of loop electrical excision procedure (LEEP) History of surgery chiari malformation decompression History of tonsillectomy and adenoidectomy History of wisdom tooth extraction Social History Smoking Status: Current every day smoker Cigarettes Per Day: 10; Second Hand Exposure: Yes ( smokes); Hx Alcohol Use: Yes Hx Substance Use: No Preferred Language: Vietnamese Communication Ability: Effective Plant Cytologist Required: No Beliefs That Will Affect Care: None Current Living Situation: Spouse and Family Feels Safe at Home: Yes Assistive Devices: Walker Physical Exam Physical Exam: On exam she is in obvious distress. She exhibits contralateral tension signs with straight leg raising on the right. There is marked + straight leg raising on the left. She is hyperesthetic to even light touch to the left lower extremity. She has significant weakness to left dorsiflexion extensor hallucis longus compared to far from the right. Results & Data ([facility]) Vital Signs (Past 12 Hours) Vital Signs Temp Pulse Pulse Resp BP BP Pulse Ox 04/19/21 13:58 95 H 20 123/72 98 04/19/21 11:12 36.6 C 104 H 18 142/94 H 98 Code Status & VTE Plan VTE Prophylaxis Plan VTE Prophylaxis will be ordered: Yes
[2021-04-19] MEDS ORDERED: LORazepam 0.5 MG TAB PO PRN (15:29)
[2021-04-19] MEDS ORDERED: NALOXONE HCL 0.4 MG/1 ML VIAL/CARP IV PRN (15:29)
[2021-04-19] MEDS ORDERED: ONDANSETRON INJ 2 MG/ML 2 ML VIAL IV PRN (15:29)
[2021-04-19] MEDS ORDERED: ONDANSETRON 4 MG OD TAB PO PRN (15:29)
[2021-04-19] MEDS ORDERED: clonazePAM 1 MG TAB PO PRN (15:29)
[2021-04-19] MEDS ORDERED: LORazepam 2 MG/1 ML VIAL IV PRN (15:29)
[2021-04-19] MEDS ORDERED: traMADol HCL 50 MG TABLET PO PRN (15:29)
[2021-04-19] MEDS ORDERED: ACETAMINOPHEN 500 MG TAB PO PRN (15:29)
[2021-04-19] MEDS ORDERED: ACETAMINOPHEN 1,000 MG/100 ML VIAL IV PRN (15:29)
[2021-04-19] MEDS ORDERED: PROMETHAZINE HCL 12.5 MG in SODIUM CHLORIDE 0.9% 50 ML IV PRN (15:29)
[2021-04-19] MEDS ORDERED: METOCLOPRAMIDE HCL INJ 5 MG/ML 2 ML VIAL IV PRN (15:29)
[2021-04-19] MEDS: LACTATED RINGER'S 1,000 ML IV SCH (15:59)
[2021-04-19] MEDS ORDERED: bisacodyL 10 MG SUPP PR PRN (16:32)
--- NOTE | 2021-04-19 16:35 | Hospitalist Consultation ---
Date of Consultation April 19, 2021 Assessment & Plan (1) Lumbar radicular pain: Due to acute superior endplate fracture of L5 and large disc herniation As per primary orthopedic service IV fluid hydration especially while NPO Pain control as ordered Preop antibiotics as ordered N.p.o. after midnight in anticipation of surgical intervention tomorrow with Dr. Arteaga Add stool softeners in light of narcotic pain medication administration to avoid constipation We will need PT/OT evaluation following surgery Continue gabapentin Obtain CBC and Chem-7 postop day 1 (2) Depression with anxiety: Continue bupropion and Klonopin as prescribed prior to hospitalization (3) GERD (gastroesophageal reflux disease): Continue Protonix (4) Tobacco use: Current every day smoker, encourage cessation We will provide with nicotine patch if she wishes I have no additional recommendations for this patient at present other than as outlined above. She is medically cleared to proceed with surgical intervention and is an overall low risk for surgery. Thank you for allowing us to participate in the care of your patient, will sign off but continue to do daily chart checks. Above plan of care will be discussed with Dr. Winters. Supervising Physician Co-Signing Physician Notes I personally saw and examined the patient. I verified all mcfadden points and agree with Susan Levi PA-C with the following exceptions and/or additions: 35 year old female admission for back pain. No acute medical needs identified. O/E currently in distress from back pain awaiting pain medication, HS 1+2, no murmurs, Chest CTAB A/P Lumbar radicular pain - no further medical workup required pre-surgery. patient is medically stable for surgery at this time. Low surgical risk. No acute medical needs identified or anticipated. Thank you for the consult, we will sign off at this time. History of Present Illness Reason for Consultation: Medical management Requesting Physician: Dr. Barrett Arteaga Attending Physician: Barrett Arteaga, DO History of Present Illness Amee Infante is a 35-year-old white female with a past medical history of anxiety/depression managed well with bupropion and klonopin who was admitted under Dr. Arteaga's service due to intractable back pain with radicular symptoms. Patient is status post a TLIF of S5-S1 performed Dr. Arteaga in October 2020. This was performed after sustaining a traumatic back injury from a fall last March. Pt was recently hospitalized at [facility] last through Saturday for intractable back pain after a visit to physical therapy where the PT performed straight leg raise on the L and she immediately had pain in her lower back and shooting down her left leg. She ended up passing out from the pain and EMS was summoned and she was transported to the ED at [facility]. She was hospitalized for pain control and discharged home last Saturday. When she followed up with [facility] this week in the office, images were reviewed and she was noted to have a superior endplate fracture of L5 with some displacement of the pedicle and posterior elements into the canal. Subsequently, it was advised that she go to the ER as it was felt that she would require surgical intervention. Currently, pt is resting comfortably in bed, she offers no complaints/concerns at this time. She feels that her back pain is well managed, denies saddle anesthesias, bowel/bladder incontinence. She denies chest pain, dyspnea, n/v/d, f/c, headache, or gu symptoms. Hospitalist have been asked to see in consult for medical management. Allergies Allergy/AdvReac Type Severity Reaction Status Date / Time methocarbamol [From Robaxin] Allergy Severe THROAT Verified 04/19/21 15:04 SWELLING levofloxacin [From Levaquin] Allergy Intermediate facial Verified 04/19/21 15:04 edema Sulfa (Sulfonamide Allergy Intermediate Hives Verified 04/19/21 15:04 Antibiotics) morphine AdvReac Severe severe Verified 04/19/21 15:04 muscle cramping Home Medications Medication Instructions Recorded Confirmed Type acetaminophen 500 mg capsule 500 mg PO Q6H PRN 11/08/20 04/19/21 History bupropion HCl 150 mg 24 hr tablet, 150 mg PO QAM 11/08/20 04/19/21 History extended release (Wellbutrin XL) clonazepam 1 mg tablet (Klonopin) 1 mg PO BID PRN 11/08/20 04/19/21 History cyanocobalamin (vitamin B-12) 1,000 mcg IM MO 11/08/20 04/19/21 History 1,000 mcg/mL injection solution diphenhydramine HCl 25 mg capsule 25 mg PO HS PRN 11/08/20 04/19/21 History (Benadryl) ibuprofen 600 mg tablet 600 mg PO Q6H PRN 11/08/20 04/19/21 History pantoprazole 40 mg tablet,delayed 40 mg PO QAM 11/08/20 04/19/21 History release (Protonix) tizanidine 2 mg tablet 2 mg PO BID PRN 11/08/20 04/19/21 History cyclobenzaprine 10 mg tablet 10 mg PO TID PRN 04/19/21 04/19/21 History gabapentin 100 mg capsule 100 mg PO DIRECTED PRN 04/19/21 04/19/21 History gabapentin 300 mg capsule 300 mg PO TID 04/19/21 04/19/21 History methylprednisolone 4 mg tablets in 0 mg PO DIRECTED 04/19/21 04/19/21 History a dose pack Patient History Medical History Anxiety and depression DDD (degenerative disc disease) Herniated intervertebral disc History of cardiac murmur as a child History of Chiari malformation History of gastric ulcer History of GI bleed History of iron deficiency anemia Osteoarthritis Postoperative nausea Retrolisthesis of vertebrae Smoker Surgical History History of x 2 History of cholecystectomy History of colonoscopy History of esophagogastroduodenoscopy (EGD) History of loop electrical excision procedure (LEEP) History of surgery chiari malformation decompression History of tonsillectomy and adenoidectomy History of wisdom tooth extraction Social History Smoking Status: Current every day smoker Cigarettes Per Day: 1/2 pack; Second Hand Exposure: Yes ( smokes); Hx Alcohol Use: Yes Hx Substance Use: No Preferred Language: Arabic Communication Ability: Effective Powder Coat Painter Required: No Beliefs That Will Affect Care: None Current Living Situation: Spouse Feels Safe at Home: Yes Assistive Devices: None Review of Systems Review of Systems: CONSTITUTIONAL: Denies weight loss/gain, fever and chills, fatigue, malaise, generalized weakness. HEENT: Denies changes in vision and hearing. RESPIRATORY: Denies SOB, cough, wheezing. CV: Denies palpitations, CP, lower extremity edema, orthopnea, PND. GI: Denies abdominal pain, nausea, vomiting and diarrhea. : Denies dysuria and urinary frequency, urgency, hesitancy. MUSCULOSKELETAL: +back pain that radiates down L leg w/ associated numbness/tingling. SKIN: Denies rash and pruritus. NEUROLOGICAL: Denies headache, syncope, focal weakness, numbness, tingling. PSYCHIATRIC: Denies recent changes in mood. Denies anxiety and depression. Physical Exam Physical Exam: GENERAL: 35 yo well-developed, well-nourished WF. NAD. LUNGS: Clear to auscultation bilaterally. No accessory muscle use. No W/R/R. CARDIOVASCULAR: Regular rate and rhythm. No M/G/R. No JVD. ABDOMEN: Soft, non-tender and non-distended. BS normal x 4 quad. EXTREMITIES: No edema. Non-tender. Peripheral pulses +2/4. MUSK: Tenderness of L4-5 spinous processes to palpation. NEUROLOGIC: A&O x3. No focal neurological deficits. CN II-XII grossly intact. +straight leg raise on L. PSYCHIATRIC: Cooperative. Appropriate mood and affect. SKIN: Warm, dry, intact. No rashes or lesions. Results & Data Results & Data ([facility]) Vital Signs (Past 12 Hours) Vital Signs Temp Pulse Pulse Pulse Resp BP BP 04/19/21 15:29 36.6 C 73 14 120/80 04/19/21 15:13 92 H 18 128/82 04/19/21 13:58 95 H 20 123/72 04/19/21 11:12 36.6 C 104 H 18 142/94 H Pulse Ox 04/19/21 15:29 96 04/19/21 15:13 98 04/19/21 13:58 98 04/19/21 11:12 98 Laboratory Results 04/19/21 11:50 04/19/21 11:[address] and MRI from recent stay at [facility] is not available for review PG Care Time/CCT Total # of Minutes Spent Total Time Spent with Patient: Total time spent is greater than 50% in coordination of care (as documented) at patient's floor/unit and/or counseling patient: [place] [address] Inpt Consult Level 3 Patient Type New Medical Decision Making Low Complexity Diagnoses Lumbar radicular pain M54.16 Depression with anxiety F41.8 GERD (gastroesophageal reflux disease) K21.9 Tobacco use Z72.0
[2021-04-19] MEDS: HYDROmorphone INJ 1 MG/ML SYRINGE IV PRN (20:06)
[2021-04-19] MEDS: DOCUSATE SODIUM 100 MG CAP PO SCH (20:10)
[2021-04-19] MEDS: GABAPENTIN 300 MG CAP PO SCH (20:14)
[2021-04-19] MEDS: oxyCODONE HCL IR 5 MG TAB (IMMEDIATE RELEASE) PO PRN (22:06)
[2021-04-20] MEDS: HYDROmorphone INJ 1 MG/ML SYRINGE IV PRN ×2 (00:40→11:14)
[2021-04-20] MEDS: LACTATED RINGER'S 1,000 ML IV SCH ×3 (01:55→20:31)
[2021-04-20] MEDS: HYDROmorphone INJ 0.5 MG/0.5 ML SYR IV PRN ×2 (04:34→08:06)
[2021-04-20] MEDS ORDERED: ceFAZolin 2000MG 2,000 MG/15 ML SYR IV SCH (06:00)
[2021-04-20] MEDS: DOCUSATE SODIUM 100 MG CAP PO SCH ×2 (08:04→20:39)
[2021-04-20] MEDS: buPROPion XL 150 MG TABCR PO SCH (08:05)
[2021-04-20] MEDS: GABAPENTIN 300 MG CAP PO SCH ×3 (08:05→20:34)
[2021-04-20] MEDS: PANTOprazole 40 MG TAB PO SCH (08:05)
[2021-04-20] MEDS: oxyCODONE HCL IR 5 MG TAB (IMMEDIATE RELEASE) PO PRN ×2 (12:46→19:35)
[2021-04-20] MEDS ORDERED: MIDAZOLAM HCL 1 MG/ML 2ML VIAL ONE (13:55)
[2021-04-20] MEDS ORDERED: fentaNYL citrate 100 MCG/2 ML VIAL ONE (13:55)
[2021-04-20] MEDS ORDERED: DEXAMETHASONE SOD INJ 4 MG/ML VIAL ONE (13:57)
[2021-04-20] MEDS ORDERED: ePHEDrine sulfate 50 MG/ML AMP IV PRN (13:57)
[2021-04-20] MEDS ORDERED: ONDANSETRON INJ 2 MG/ML 2 ML VIAL IV PRN ×2 (13:57→18:50)
[2021-04-20] MEDS ORDERED: LIDOCAINE 2% 2 ML VIAL/AMP(20MG/ML) INFIL ONE (13:57)
[2021-04-20] MEDS ORDERED: PROPOFOL IV EMULSION 10 MG/ML 20 ML VIAL IV ONE (13:57)
[2021-04-20] MEDS ORDERED: ONDANSETRON INJ 2 MG/ML 2 ML VIAL ONE ×2 (13:57→15:54)
[2021-04-20] MEDS ORDERED: PHENYLEPHRINE 100MCG/ML 5ML SYR IV PRN (13:57)
[2021-04-20] MEDS ORDERED: ATROPINE SULFATE 0.1 MG/ML 10ML SYR IV PRN (13:57)
[2021-04-20] MEDS ORDERED: ROCURONIUM BROMIDE 10 MG/ML 5 ML VIAL IV ONE (13:57)
[2021-04-20] MEDS ORDERED: HYDROmorphone INJ 1 MG/ML SYRINGE IV PRN (13:57)
[2021-04-20] MEDS ORDERED: LABETALOL HCL IV 5 MG/ML 20ML IV PRN (13:57)
--- NOTE | 2021-04-20 14:46 | History & Physical Bridge Note ---
Date of Service April 20, 2021 History & Physical Bridge Note I have examined the patient, reviewed the History & Physical and in the interval since the performance of the History & Physical I have noted the following changes of clinical significance: no changes noted Decompression fusion L4-L5 removal instrumentation L5-S1
[2021-04-20] MEDS ORDERED: EPINEPHrine INJ 1 MG/ML AMP ONE (14:51)
[2021-04-20] MEDS ORDERED: ceFAZolin 330 MG/ML 1 GM VIAL ONE (14:51)
[2021-04-20] MEDS ORDERED: BUPIVACAINE 0.5 % 5 MG/1 ML MPF 30ML VIAL ONE (14:55)
[2021-04-20] MEDS ORDERED: HYDROmorphone INJ 2 MG/ML SYR/VIAL ONE (15:16)
[2021-04-20] MEDS ORDERED: ePHEDrine sulfate 50 MG/ML AMP ONE (15:49)
[2021-04-20] MEDS ORDERED: BUPIVACAINE 0.5 % 5 MG/1 ML MPF 30ML VIAL INFIL ONE (16:04)
[2021-04-20] MEDS ORDERED: FLOSEAL HEMOSTATIC MATRIX 10ML TOP ONE (17:06)
--- NOTE | 2021-04-20 17:28 | Operative Report ---
Post Operative Report Pre & Post Diagnosis Operation Date: 04/20/21 09:25 Pre-Op Diagnosis: Lumbar disc herniation with radiculopathy Fracture of the base of the L5 pedicle Post-Op Diagnosis: Same I identified the patient and participated in the time-out.: Yes Procedure Operation Date: 04/20/21 09:25 Actual Procedures #1 removal of posterior instrumentation L5-S1. #2 exploration of fusion L5-S1. #3 decompression with bilateral medial facetectomies and foraminotomies L4-L5. #4 posterior spinal fusion L4-5 and #5 placement posterior instrumentation L4- S1. #6 interbody fusion L4-5 #7 placement of titanium cage 13 x 22 mm at L4-L5. #8 placement locally harvested morselized autograft in the posterior gutters per #9 placement for sponge and sponge and master graft in the posterior lateral gutters and I factor in the body space. Surgeon Barrett Arteaga, DO Business Office Director None Estimated Blood Loss 75 Findings Consistent with Post-Op Diagnosis Specimens None Indications This is a 35-year-old female presents with severe radiculopathy and evidence of discrimination with fractured L5 pedicle. In light of her severe pain and progressive neuro deficit she is here for urgent decompression fusion. Description of Procedure Patient was met with identified informed consent obtained. Patient was then taken to the operative suite underwent ablation placed in a prone position Everett table atop the Damián frame. All bony prominences well-padded eyes inspected to ensure no external pressure placed upon them. This point the lumbar spine was prepped and draped in a sterile fashion. Sharp dissection with the assistance of Bovie cautery was performed down to and exposing the lamina and transverse processes of L 4 any instrumentation at L5-S1 bilaterally. And proceeded move the hardware bilaterally explore the fusion mass noting it to be maturing. Informed complete laminectomy of L4 including bilateral medial facetectomies and foraminotomies I did explore the L5 pedicle and root as it descended out of the L5 foramen on the left. Any fragments of disc material rem yusra. I ensure there is no bony fragments on the root. I did place pedicle screws in L4-L5 and S1 levels with the exception of L5 on the left as the screw was clearly loose secondary to the fracture. Proper size rods were placed. By way of a transforaminal portion left pleat discectomy of L for L5 was performed endplates curetted to subcortical being bone and a 13 x 22 mm titanium cage filled I factor tapped in position. The rods then compressed locked in final position bilaterally. The transverse processes of L4 and L5 burred to subcortical being bone. Infuse collagen sponge mass graft local autograft was placed in posterior gutters. 15 round SREEDHAR drain inserted. The incision was then closed with 1 Vicryl the fascia 2-0 Vicryl subcutaneously and 4 Monocryl for final skin closure. Steri-Strip sterile dressings placed. Patient will continue PACU stable condition. Please note spinal cord monitoring was utilized at the procedure no changes noted. I attest to the content of the Intraoperative Record and any orders documented therein. Any exceptions are noted below.
[2021-04-20] MEDS: fentaNYL citrate 100 MCG/2 ML VIAL IV PRN ×2 (18:01→18:06)
--- NOTE | 2021-04-20 18:14 | Fluoroscopy Report ---
FL lumbar spine 2-3V CLINICAL HISTORY: L4-5 D/F/I COMPARISON STUDY: Lumbar spine fluoroscopic images November 11, 2020. FLUOROSCOPY TIME: 10 seconds. FLUOROSCOPIC IMAGES: 2 FINDINGS: Previous L5-S1 discectomy was noted. Fluoroscopy was provided during L4-L5 discectomy and p osterior decompression is noted. There are bilateral pedicle screws at the L4 and S1 levels with a ri ght sided L5 screw. IMPRESSION: Fluoroscopy provided during interval L4-L5 discectomy. Pedicle screw fusion from L4 thro ugh S1. ACT 112: Negative or not required by law. Electronically signed by: Brayden Peters M.D. 04/20/2021 6:13 PM
--- NOTE | 2021-04-20 18:26 | Anesthesiology Progress Note ---
Date of Service April 20, 2021 Anesthesia Post Procedure Vital Signs Vital Signs: Temp Pulse Pulse Resp BP BP Pulse Ox 04/20/21 18:10 113 H 12 156/72 H 94 04/20/21 18:00 102 H 18 141/78 H 96 04/20/21 17:50 91 H 12 153/84 H 95 04/20/21 17:42 36.7 C 118 H 20 152/78 H 95 04/20/21 13:58 37.1 C 18 L 87 18 122/69 95 04/20/21 08:16 37.2 C 94 H 16 127/82 95 04/19/21 23:14 36.9 C 82 14 117/72 97 Pain Intensity Back: Pain Intensity: 7 Transfer of Care Handoff Completed per policy Notes Mental Status: alert / awake / arousable and participated in evaluation Patient Amnestic to Procedure: Yes Nausea / Vomiting: adequately controlled Pain: adequately controlled Airway Patency, RR, SpO2: stable & adequate BP & HR: stable & adequate Hydration State: stable & adequate Anesthetic Complications: no major complications apparent and Pt Satisfied with anesthetic care
[2021-04-20] MEDS ORDERED: tiZANidine HCL 4 MG TABLET PO PRN (18:50)
[2021-04-20] MEDS ORDERED: GABAPENTIN 100 MG CAP PO PRN (18:50)
[2021-04-20] MEDS ORDERED: CYCLOBENZAPRINE HCL 10 MG TAB PO PRN (18:50)
[2021-04-20] MEDS ORDERED: diphenhydrAMINE Capsule 25 MG CAP PO PRN ×2 (18:50)
[2021-04-20] MEDS ORDERED: NALOXONE HCL 0.4 MG/1 ML VIAL/CARP IV PRN (18:50)
[2021-04-20] MEDS ORDERED: SOD PHOSPHATE/SOD BIPHOSPHATE ENEMA 132 ML BTL PR PRN (18:50)
[2021-04-20] MEDS ORDERED: ACETAMINOPHEN 500 MG TAB PO PRN (18:50)
[2021-04-20] MEDS ORDERED: MAGNESIUM HYDROXIDE SUSP 30 ML UDC PO PRN (18:50)
[2021-04-20] MEDS ORDERED: bisacodyL 10 MG SUPP PR PRN (18:50)
[2021-04-20] MEDS ORDERED: DO NOT ADMINISTER PNEUMOCOCCAL VACCINE PRN (18:50)
[2021-04-20] MEDS ORDERED: NON-FORMULARY MEDICATION (Acetaminophen 500 mg Capsule) PO PRN (18:50)
[2021-04-20] MEDS ORDERED: DO NOT ADMINISTER FLU VACCINE PRN (18:50)
[2021-04-20] MEDS ORDERED: FAMOTIDINE 20 MG TAB PO PRN (18:50)
[2021-04-20] MEDS ORDERED: ONDANSETRON 4 MG OD TAB PO PRN (18:50)
[2021-04-20] MEDS ORDERED: traMADol HCL 50 MG TABLET PO PRN (18:50)
[2021-04-20] MEDS ORDERED: LORazepam 0.5 MG TAB PO PRN (18:50)
[2021-04-20] MEDS ORDERED: hydrOXYzine HCl 25 MG TAB PO PRN (18:50)
[2021-04-20] MEDS ORDERED: ACETAMINOPHEN 1,000 MG/100 ML VIAL IV PRN (18:50)
[2021-04-20] MEDS ORDERED: PROMETHAZINE HCL 12.5 MG in SODIUM CHLORIDE 0.9% 50 ML IV PRN (18:50)
[2021-04-20] MEDS ORDERED: METOCLOPRAMIDE HCL INJ 5 MG/ML 2 ML VIAL IV PRN (18:50)
[2021-04-20] MEDS ORDERED: LORazepam 2 MG/1 ML VIAL IV PRN (18:50)
[2021-04-20] MEDS ORDERED: NON-FORMULARY MEDICATION (Methylprednisolone 4 mg tablets,dose pack) PO SCH (18:50)
[2021-04-20] MEDS ORDERED: ALUMINUM/MAGNESIUM SUSP 30 ML UDC PO PRN (18:50)
[2021-04-20] MEDS: KETOROLAC TROMETHAMINE 15 MG/ML VIAL IV SCH (19:36)
[2021-04-20] MEDS: DOCUSATE SODIUM/SENNA 50/8.6MG TAB PO SCH (20:34)
[2021-04-20] MEDS ORDERED: GABAPENTIN 300 MG CAP PO SCH (21:00)
[2021-04-21] MEDS: oxyCODONE HCL IR 5 MG TAB (IMMEDIATE RELEASE) PO PRN ×5 (00:14→20:06)
[2021-04-21] MEDS: ceFAZolin 2000MG 2,000 MG/15 ML SYR IV SCH ×2 (00:15→07:47)
[2021-04-21] MEDS: KETOROLAC TROMETHAMINE 15 MG/ML VIAL IV SCH ×3 (02:06→14:11)
[2021-04-21] MEDS: POLYETHYLENE (MIRALAX) 17 GM PACK PO SCH ×3 (05:33→17:48)
[2021-04-21] MEDS: LACTATED RINGER'S 1,000 ML IV SCH (05:37)
[2021-04-21] MEDS: dexAMETHasone 6 MG in SYRINGE 0 ML IV SCH (07:48)
[2021-04-21 07:51] LABS: Basophils # (auto) 0.01 K/uL (0-0.2); Basophils % (auto) 0.1 %; Eosinophils # (auto) 0.01 K/uL (0-0.5); Eosinophils % (auto) 0.1 %; Hematocrit (blood only) 35.7 % (37-47); Hemoglobin 11.4 g/dL (12.0-16.0); Immature Granulocytes # (auto) 0.03 K/uL (0.00-0.02); Immature Granulocytes % (auto) 0.2 %; Lymphocytes # (auto) 1.54 K/uL (1.2-3.4); Lymphocytes % (auto) 11.3 %; Mean Corpuscular Hemoglobin 29.2 pg (25-34); Mean Corpuscular Hgb Conc 31.9 g/dL (32-36); Mean Corpuscular Volume 91.5 fL (80-100); Mean Platelet Volume 10.9 fL (7.4-10.4); Monocytes # (auto) 1.08 K/uL (0.11-0.59); Monocytes % (auto) 7.9 %; Neutrophils # (auto) 10.95 K/uL (1.4-6.5); Neutrophils % (auto) 80.4 %; Platelet Count 250 K/uL (130-400); RDW Coefficient of Variation 13.1 % (11.5-14.5); RDW Standard Deviation 43.7 fL (36.4-46.3); White Blood Count 13.62 K/uL (4.8-10.8)
[2021-04-21] MEDS: DOCUSATE SODIUM 100 MG CAP PO SCH ×2 (07:54→20:11)
[2021-04-21] MEDS: buPROPion XL 150 MG TABCR PO SCH (07:54)
[2021-04-21] MEDS: PANTOprazole 40 MG TAB PO SCH (07:54)
[2021-04-21] MEDS: GABAPENTIN 300 MG CAP PO SCH ×3 (07:55→20:11)
[2021-04-21 08:15] LABS: BUN Creatinine Ratio 16.1 (10-20); Calcium 8.9 mg/dl (8.5-10.1); Creatinine Clr Calc Pharmacy 167.9 ml/min; Est GFR (Non-African American) 121.7 ml/min; Potassium 3.8 mmol/L (3.5-5.1)
--- NOTE | 2021-04-21 09:01 | Orthopedic Progress Note ---
Date of Service April 21, 2021 Assessment & Plan (1) Lumbar radicular pain: Plan: Patient stable postop day #1. We will continue with ambulation and gait training. Continue with GI DVT prophylaxis and mobilization. We have given her medication for breakthrough as well. She is likely be with us over the weekend. Plan: . Admission and Anticipated Discharge Date Admission Date: April 19, 2021 Subjective Patient seen bedside in room 388. She is complaining of incisional pain at this point. The leg pain has resolved however. The pain medication works for the first 2 hours and the pain returns. She is not yet been up and out of bed. She is not been seen by physical therapy yet. She denies any other numbness, tingling, or paresthesias. Physical Exam Physical Exam: On exam she is alert and oriented. She answers questions appropriately. Her abdomen soft nontender. Her calves are supple nontender. Strength and sensation are intact in her lower extremities. SREEDHAR drain is in place and holding suction. Results & Data ([facility]) Vital Signs (Past 12 Hours) Vital Signs Temp Pulse Resp BP Pulse Ox 04/21/21 08:34 36.8 C 94 H 16 143/78 H 96 04/21/21 04:18 36.7 C 83 15 127/80 97 04/20/21 23:09 37.4 C 105 H 18 142/78 H 96 04/20/21 21:00 37.1 C 103 H 16 124/70 94
[2021-04-21] MEDS: HYDROmorphone INJ 0.5 MG/0.5 ML SYR IV PRN ×3 (09:37→20:57)
[2021-04-21] MEDS: DOCUSATE SODIUM/SENNA 50/8.6MG TAB PO SCH (20:11)
[2021-04-22] MEDS: oxyCODONE HCL IR 5 MG TAB (IMMEDIATE RELEASE) PO PRN ×4 (00:06→16:33)
[2021-04-22] MEDS: POLYETHYLENE (MIRALAX) 17 GM PACK PO SCH ×3 (00:06→13:20)
[2021-04-22] MEDS: IBUPROFEN 600 MG TAB PO PRN ×2 (01:58→13:19)
[2021-04-22] MEDS: HYDROmorphone INJ 0.5 MG/0.5 ML SYR IV PRN ×3 (01:58→13:19)
[2021-04-22] MEDS: PANTOprazole 40 MG TAB PO SCH (07:59)
[2021-04-22] MEDS: GABAPENTIN 300 MG CAP PO SCH ×2 (07:59→15:16)
[2021-04-22] MEDS: dexAMETHasone 6 MG in SYRINGE 0 ML IV SCH (07:59)
[2021-04-22] MEDS: buPROPion XL 150 MG TABCR PO SCH (07:59)
[2021-04-22] MEDS: DOCUSATE SODIUM 100 MG CAP PO SCH (08:00)
[2021-05-03] MEDS ORDERED: CYANOCOBALAMIN 1000 MCG/ML VIAL IM SCH (09:00)
== END 2021-04-22 17:10 | disposition home or self-care (01) | DRG 455 ==
LOC: ED 10:57 → 3N 12:22